=== PATIENT | female | born 1955 | race Caucasian/White ===

== ENCOUNTER → 2017-11-08 | Outpatient (CLI) | payer OTHER ==
[~2017-11-08] MED LIST: AZIT-18 PO; BRIM5DRO8 OP; DIPH-740 PO; PRED-1 PO; VITAMINS
--- NOTE | 2017-11-09 08:56 | RADIOLOGY IMAGING REPORT ---
FACILITY: [facility] - [place] PATIENT NAME: RUBY ULLOA : [id number] MR: [id number] V: [id number] EXAM DATE: ORDERING PHYSICIAN: KATHERINE BENNETT TECHNOLOGIST: Mickie Rae PROCEDURE:BILATERAL DIGITAL SCREENING MAMMOGRAM WITH CAD ASSISTED INTERPRETATION AND 3D BREAST TOMOSYNTHESIS. COMPARISON:Prior mammograms dated 08/04/11. INDICATIONS:SCREENING FINDINGS: A small amount of fibroglandular tissue is seen throughout the breasts. Most of the parenchymal pattern has remained stable when allowing for difference in mammographic technique and patient positioning. There is a focal area of increased density in the medial inferior portion of the left breast for which spot compression view and left breast ultrasound is recommended. DIAGNOSTIC CATEGORY 0--INCOMPLETE: NEED ADDITIONAL IMAGING EVALUATION. RECOMMENDATIONS: ADDITIONAL MAMMOGRAPHIC VIEWS REQUIRED: LEFT BREAST. ULTRASOUND: LEFT BREAST. IMPRESSION: BI-RADS 0: Additional views of the left breast and left breast ultrasound recommended. Images were reviewed with R2CAD and 3D breast tomosynthesis. Dictated by: Cee Toledo M.D. on 11/08/2017 at 16:20 Transcribed by: ELIZABETH on 11/08/2017 at 18:51 Approved by: Cee Toledo M.D. on 11/09/2017 at 8:55 [facility]
== END ==
LOC: MAMO 00:36
PROVIDERS: ATTEND Internal Medicine
DX: Z12.31 Encounter for screening mammogram for malignant neoplasm of breast (principal); R92.8 Other abnormal and inconclusive findings on diagnostic imaging of breast
CPT/HCPCS: 77063; 77067

== ENCOUNTER 2017-11-09 00:23 | Day surgery (SDC) | payer OTHER ==
[~2017-11-09] VITALS: Ht 160 cm; Wt 82.1 kg
[2017-11-09 06:19] VITALS: BP 98/78
[2017-11-09] MEDS ORDERED: NORMOSOL R SOLN(*) 1000 ML BAG 1,000 ML IV PRN (06:45)
[2017-11-09] MEDS ORDERED: MIDAZOLAM 2 MG/2 ML VIAL IVP PRN (06:45)
[2017-11-09] MEDS ORDERED: LIDOCAINE/SOD BICARB 8.4% SYR ID ONE (06:45)
[2017-11-09] MEDS ORDERED: LIDOCAINE MPF 1% 5 ML VIAL ONE (07:04)
[2017-11-09] MEDS ORDERED: PROPOFOL EMUL(*) 10MG/ML 20 ML 60 ML ONE (07:04)
--- NOTE | 2017-11-09 07:17 | Post Operative Progress Note ---
Post Operative Progress Note Date: Nov 09, 2017 Time: 07:54 Surgeon: isaiah Anesthesia: dr escalante Pre-Op Diagnosis: screening colonoscopy Post-Op Diagnosis: 2 mm polyp at 25 cm and 3 mm polyp at 20 cm left colon diverticulosis Procedure(s): colonoscopy and polyp ZEFERINO KOHLI MD Nov 09, 2017 07:17
--- NOTE | 2017-11-09 07:18 | Short(Outpt) Discharge Summary ---
Discharge Summary Reason for Hosp/Final Diag: (1) Encounter for screening colonoscopy Hospital Course & Plan: 2 mm polyp at 205 cm and 3 mm polyp at 20 cm and left colon diverticula Departure Discharge to: Home Discharge Instructions Home Meds Reported Medications Brimonidine Tartrate 0.2% Drops (BRIMONIDINE TARTRATE 0.2% DROPS) 5 Ml Drops, 5 ML OP BID, ML ONE DROP IN EACH EYE 11/02/17 Discontinued Reported Medications Diphenhydramine Hcl (BENADRYL) 25 Mg Capsule, 25 MG PO Q6-8H, CAPSULE 08/15/15 Diet: High Fiber Activity: As Tolerated ZEFERINO KOHLI MD Nov 09, 2017 07:18
[2017-11-09 07:56] VITALS: BP 118/76
[2017-11-09 08:00] VITALS: BP 105/61
[2017-11-09 08:23] VITALS: BP 95/69
--- NOTE | 2017-11-09 11:31 | NACHTIGAL COLONOSCOPY ---
EVENT DATE: November 09, 2017 SURGEON: Evan Malone MD ANESTHESIOLOGIST: Rl Brown MD ANESTHESIA: Sedation PREOPERATIVE DIAGNOSIS Screening colonoscopy. POSTOPERATIVE DIAGNOSIS Left colonic diverticulosis and 2 mm polyp at 25 cm, 3 mm polyp at 20 cm. PROCEDURE PERFORMED Colonoscopy. DESCRIPTION OF PROCEDURE The patient was placed in the left lateral decubitus position and given intravenous sedation. Rectal exam was unremarkable. Flexible colonoscope was inserted and advanced to the cecum. She had an excellent bowel prep. The ileocecal valve, base of the cecum and appendiceal orifice were identified. The scope was slowly withdrawn. Care was taken to look behind the haustral folds. No abnormalities were noted in the cecum, right colon, transverse colon. Starting in the descending and sigmoid colon, she had multiple diverticula, no evidence of diverticulitis. At 25 cm, she had a 2 mm polyp. This was removed with the cold cup. At 20 cm, she had a 3 mm polyp. This was removed with a few bites of the cold cup. The rectum was normal. Scope was retroflexed, that appeared to be normal. MTDJolynn
== END 2017-11-09 08:30 | disposition home or self-care (01) ==
LOC: OR 00:23
PROVIDERS: ATTEND Surgery
DX: Z12.11 Encounter for screening for malignant neoplasm of colon (principal); D12.6 Benign neoplasm of colon, unspecified; K63.5 Polyp of colon
CPT/HCPCS: 00811; 45380; 88305; J2001; J2704

== ENCOUNTER → 2017-12-12 | Outpatient (REF) ==
--- NOTE | 2017-12-13 12:24 | RADIOLOGY IMAGING REPORT ---
FACILITY: [facility] PATIENT NAME: RUBY ULLOA : [id number] MR: [id number] V: [id number] EXAM DATE: ORDERING PHYSICIAN: KATHERINE BENNETT TECHNOLOGIST: Angelina Ellis PROCEDURE:LEFT DIGITAL DIAGNOSTIC MAMMOGRAM WITH CAD AND 3D BREAST TOMOSYNTHESIS. COMPARISON:Prior mammograms dated 11/08/17, 08/04/11. INDICATIONS:FURTHER EVALUATION FINDINGS: The patient returns for spot compression views in the left CC and MLO projection and a lateral medial view of the left breast. Additional images do reconfirm an ovoid nodule in the medial inferior portion of the left breast which was not present on the prior mammograms. Today's left breast ultrasound demonstrated an ovoid slightly irregular hypoechoic nodule in the 7 o'clock position of the left breast for which ultrasound guided core biopsy is recommended. DIAGNOSTIC CATEGORY 4--SUSPICIOUS FOR MALIGNANCY. RECOMMENDATIONS: ULTRASOUND-GUIDED CORE BIOPSY: LEFT BREAST. IMPRESSION: BI-RADS 4: Ultrasound guided core biopsy of the hypoechoic nodule in the 7 o'clock position of the left breast recommended for further evaluation. Findings were discussed with the patient at the time of the examination. Dictated by: Cee Toledo M.D. on 12/12/2017 at 16:00 Transcribed by: ELIZABETH on 12/12/2017 at 20:26 Approved by: Cee Toledo M.D. on 12/13/2017 at 12:22 [facility]
--- NOTE | 2017-12-13 12:24 | RADIOLOGY IMAGING REPORT ---
FACILITY: [facility] - [place] PATIENT NAME: RUBY ULLOA : [id number] MR: [id number] V: [id number] EXAM DATE: ORDERING PHYSICIAN: KATHERINE BENNETT TECHNOLOGIST: Jennifer Pedraza PROCEDURE:LEFT BREAST ULTRASOUND COMPLETE COMPARISON:None. INDICATIONS:FURTHER EVALUATION FINDINGS: In the 7 o'clock position of the left breast there is a slightly irregular ovoid hypoechoic nodule measuring 8.2 x 5.5 x 5.9 mm. This corresponds to the new ovoid nodule seen in the medial inferior portion of the left breast on the recent mammograms. Ultrasound guided core biopsy recommended. Incidentally noted are two small fatty replaced lymph nodes in the left axilla. DIAGNOSTIC CATEGORY 4--SUSPICIOUS FOR MALIGNANCY. RECOMMENDATIONS: ULTRASOUND-GUIDED CORE BIOPSY: LEFT BREAST. IMPRESSION: BI-RADS 4: Ultrasound guided core biopsy of the solid hypoechoic slightly irregular nodule in the 7 o'clock position of the left breast recommended for further evaluation. Dictated by: Cee Toledo M.D. on 12/12/2017 at 16:01 Transcribed by: ELIZABETH on 12/12/2017 at 20:29 Approved by: Cee Toledo M.D. on 12/13/2017 at 12:22 [facility]
== END ==
LOC: MAMO 01:45
PROVIDERS: ATTEND Internal Medicine
DX: R92.8 Other abnormal and inconclusive findings on diagnostic imaging of breast (principal); N63.20 Unspecified lump in the left breast, unspecified quadrant
CPT/HCPCS: 77065

== ENCOUNTER → 2017-12-19 | Outpatient (REF) ==
[2017-12-19 11:32] LABS: INR 0.94
--- NOTE | 2017-12-19 15:43 | RADIOLOGY IMAGING REPORT ---
FACILITY: [facility] - [place] PATIENT NAME: RUBY ULLOA : [id number] MR: [id number] V: [id number] EXAM DATE: ORDERING PHYSICIAN: KAILEY GAONA TECHNOLOGIST: Juanjo Elam PROCEDURE: BIOPSY LEFT BREAST COMPARISON: Breast images are available. HISTORY: 62 yr old female with an 8mm mass Left breast 7 o'clock position who presents for Ultrasound guided core biopsy. INDICATIONS: ABNORMAL MAMMO FINDINGS: Signed, written informed consent was obtained from the patient prior to the procedure. The risks include but are not limited to bleeding, infection & pain. All questions were answered. A final time out was performed prior to the procedure. The patient's left breast was prepped and draped in a sterile fashion. The 8mm nodule in the Left breast 7 o'clock position was localized with Ultrasound. Superficial & deep anesthesia was performed with 6cc Lidocaine. A superficial skin maddi was made with a scalpel. Using Ultrasound guidance, 5 core biopsies were performed with a 14 gauge spring loaded Achieve biopsy gun. A metallic biopsy clip was left at the site. There were no immediate post procedure complications. Post procedure mammogram documents accurate clip location. IMPRESSION: 1. Technically successful ultrasound guided core biopsy of an 8mm nodule in the Left breast 7 o'clock position. 2. Post procedure mammogram as above. Dictated by: Taye Lizama M.D. on 12/19/2017 at 14:37 Transcribed by: AVERY on 12/19/2017 at 15:02 Approved by: Taye Lizama M.D. on 12/19/2017 at 15:42 [facility]
--- NOTE | 2017-12-19 15:43 | RADIOLOGY IMAGING REPORT ---
FACILITY: [facility] - [place] PATIENT NAME: RUBY ULLOA : [id number] MR: [id number] V: [id number] EXAM DATE: ORDERING PHYSICIAN: KAILEY GAONA TECHNOLOGIST: Juanjo Elam PROCEDURE: BIOPSY LEFT BREAST COMPARISON: Breast images are available. HISTORY: 62 yr old female with an 8mm mass Left breast 7 o'clock position who presents for Ultrasound guided core biopsy. INDICATIONS: ABNORMAL MAMMO FINDINGS: Signed, written informed consent was obtained from the patient prior to the procedure. The risks include but are not limited to bleeding, infection & pain. All questions were answered. A final time out was performed prior to the procedure. The patient's left breast was prepped and draped in a sterile fashion. The 8mm nodule in the Left breast 7 o'clock position was localized with Ultrasound. Superficial & deep anesthesia was performed with 6cc Lidocaine. A superficial skin maddi was made with a scalpel. Using Ultrasound guidance, 5 core biopsies were performed with a 14 gauge spring loaded Achieve biopsy gun. A metallic biopsy clip was left at the site. There were no immediate post procedure complications. Post procedure mammogram documents accurate clip location. IMPRESSION: 1. Technically successful ultrasound guided core biopsy of an 8mm nodule in the Left breast 7 o'clock position. 2. Post procedure mammogram as above. Dictated by: Taye Lizama M.D. on 12/19/2017 at 14:37 Transcribed by: AVERY on 12/19/2017 at 15:02 Approved by: Taye Lizama M.D. on 12/19/2017 at 15:42 [facility]
== END ==
LOC: US 10:44
PROVIDERS: ATTEND Nurse Practitioner
DX: Z12.31 Encounter for screening mammogram for malignant neoplasm of breast (principal); Z01.812 Encounter for preprocedural laboratory examination
CPT/HCPCS: 19083; 36415; 77065; 85610; 88305; 88344

== ENCOUNTER → 2019-01-02 | Outpatient (REF) ==
--- NOTE | 2019-01-03 11:11 | RADIOLOGY IMAGING REPORT ---
FACILITY: [facility] PATIENT NAME: RUBY ULLOA : [id number] MR: [id number] V: [id number] EXAM DATE: ORDERING PHYSICIAN: KAILEY GAONA TECHNOLOGIST: Anali Palomo RDMS(ABD,OBGYN,BR),RVT PROCEDURE:US LEFT BREAST COMPARISON:Today's diagnostic mammogram and prior Left breast Ultrasound of 12/12/17. INDICATIONS:Previous Left Breast Biopsy FINDINGS: In the 7 o'clock position of the Left breast 7cm from the nipple there is a relatively well circumscribed ovoid hypoechoic nodule measuring 8 x 6.1 x 5mm. This is relatively unchanged when compared to the prior study. Sense the previous pathology result however was consistent with atypical ductal hyperplasia surgical excision coordinated with mammographic hook wire localization is recommended. DIAGNOSTIC CATEGORY 4--SUSPICIOUS FOR MALIGNANCY. RECOMMENDATIONS: SURGICAL BIOPSY COORDINATED WITH SONOGRAPHIC HOOKWIRE LOCALIZATION: LEFT BREAST. IMPRESSION: BIRADS 4: Suspicious for malignancy. Surgical excision of the hypoechoic nodule 7 o'clock position of the Left breast is recommended coordinated with sonographic hook wire localization is recommended. Dictated by: Cee Toledo M.D. on 01/02/2019 at 17:02 Transcribed by: SILVIO on 01/03/2019 at 9:55 Approved by: Cee Toledo M.D. on 01/03/2019 at 11:09 [facility]
--- NOTE | 2019-01-03 11:11 | RADIOLOGY IMAGING REPORT ---
FACILITY: [facility] PATIENT NAME: RUBY ULLOA : [id number] MR: [id number] V: [id number] EXAM DATE: [id number] ORDERING PHYSICIAN: WILMA TALAVERA TECHNOLOGIST: Angelina Ellis PROCEDURE:BILATERAL DIAGNOSTIC DIGITAL MAMMOGRAM COMPARISON:Prior mammograms 12/12/17, 11/08/17. INDICATIONS:Prior Left Breast Biopsy 12/2017. FINDINGS: There are areas of scattered fibroglandular density throughout the breasts. The parenchymal pattern has remained stable allowing for difference in mammographic technique & patient positioning. The focal area of increased density in the medial inferior portion of the Left breast is again seen with adjacent biopsy. Sense that previous pathology results were consistent with atypical ductal hyperplasia a needle hook wire localization under sonographic guidance with surgical excision is recommended for further evaluation. DIAGNOSTIC CATEGORY 4--SUSPICIOUS FOR MALIGNANCY. RECOMMENDATIONS: SURGICAL BIOPSY COORDINATED WITH ULTRASOUND HOOKWIRE LOCALIZATION: LEFT BREAST. IMPRESSION: BIRADS 4: Suspicious for malignancy. A needle hook wire localization under sonographic guidance with surgical excision of the ovoid nodular density in the medial inferior portion of the Left breast is recommended as described above. Dictated by: Cee Toledo M.D. on 01/02/2019 at 17:01 Transcribed by: SILVIO on 01/03/2019 at 9:49 Approved by: Cee Toledo M.D. on 01/03/2019 at 11:09 [facility]
== END ==
LOC: MAMO 12-27 00:39
PROVIDERS: ATTEND Emergency Medicine
DX: N64.9 Disorder of breast, unspecified (principal)
CPT/HCPCS: 77062; 77066

== ENCOUNTER 2019-04-18 00:21 | Day surgery (SDC) | payer SELFPAY ==
[~2019-04-18] VITALS: Ht 160 cm; Wt 88.9 kg
[~2019-04-18 00:21] MED LIST changes: +ALBU8.5H IH; +MULT-976 TD
[2019-04-18 09:28] VITALS: BP 127/92
[2019-04-18] MEDS ORDERED: fentaNYL CITR 250 MCG/5 ML AMP ONE (09:55)
[2019-04-18] MEDS ORDERED: PROPOFOL EMUL(*) 10MG/ML 20 ML 20 ML ONE (09:56)
[2019-04-18] MEDS ORDERED: LIDOCAINE MPF 1% 5 ML VIAL ONE (09:56)
[2019-04-18] MEDS ORDERED: DEXAMETHASONE SOD PHOS 10MG/ML ONE (09:56)
[2019-04-18] MEDS ORDERED: ONDANSETRON 4 MG/2 ML VIAL ONE (09:56)
[2019-04-18] MEDS ORDERED: KETAMINE HCL 200 MG/20 ML MDV ONE (09:58)
[2019-04-18] MEDS ORDERED: ROPIVACAINE 0.5% 20 ML VIAL ONE (10:34)
[2019-04-18] MEDS ORDERED: NORMOSOL R SOLN(*) 1000 ML BAG 1,000 ML IV PRN (10:35)
[2019-04-18] MEDS ORDERED: ceFAZolin(*) 2GM/D5W 50ML 50 ML IVPB ONE (10:35)
[2019-04-18] MEDS ORDERED: FAMOTIDINE 20 MG TAB PO ONE (10:35)
[2019-04-18] MEDS ORDERED: MIDAZOLAM 2 MG/2 ML VIAL IVP PRN (10:35)
[2019-04-18] MEDS ORDERED: LIDOCAINE/SOD BICARB 8.4% SYR ID ONE (10:35)
[2019-04-18] MEDS ORDERED: ePHEDrine 25 MG/5 ML DISP.SYR IVP ONE (11:59)
[2019-04-18] MEDS ORDERED: TRAM-420 PO (12:53)
[2019-04-18] MEDS ORDERED: DOCU-416 PO (12:53)
--- NOTE | 2019-04-18 12:55 | Short(Outpt) Discharge Summary ---
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 Departure Discharge to: Home, Self Care Discharge Instructions Home Meds Active Scripts Docusate Sodium (COLACE) 100 Mg Capsule, 1 CAP PO BID, #30 CAP 0 Refills TAKE WITH A FULL GLASS OF WATER Prov:TUYET DORMAN MD 04/18/19 Tramadol Hcl (TRAMADOL HCL) 50 Mg Tablet, 1 TAB PO Q6H PRN for PAIN, #10 TAB 0 Refills Prov:TUYET DORMAN MD 04/18/19 Reported Medications Albuterol Sulfate 90 Mcg/Act (PROAIR HFA 90 MCG/ACT) 8.5 Gm Hfa.aer.ad, 1-2 PUFF IH PRN, INHALER 01/25/19 Discontinued Reported Medications Multivitamin (MULTIPLE VITAMINS) 1 Each Tablet, 1 PATCH.24H TD QDAY 01/25/19 Follow up Referrals: General Surgery - 05/01/19 @ Surgery, General with TUYET DORMAN MD You have a follow up appointment scheduled with Dr. Dorman on 05/01/19, at 3:30pm. Diet: Regular Activity: As Tolerated Special Instructions: You may remove the white surgical dressing on 04/20/19, then you can shower. After showering, leave the incision open to air but leave the steristrips in place until they fall off on their own. Do not immerse the incision for 2 weeks. TUYET DORMAN MD Apr 18, 2019 12:55
--- NOTE | 2019-04-18 13:01 | Post Operative Progress Note ---
Post Operative Progress Note Date: Apr 18, 2019 Time: 12:56 Surgeon: Monika Dictation number: [id number] Anesthesia: LMA by Dr. Mayorga Pre-Op Diagnosis: Left breast atypical ductal hyperplasia Post-Op Diagnosis: MARRY Findings: C/W dx Procedure(s): Wire-guided excision of left breast ADH Specimen Removed:(May be N/A): Left breast mass Complications: None Fluids: see anesthesia record Estimated Blood Loss: Minimal Date OP Note Dictated: Apr 18, 2019 Time OP Note Dictated: 12:57 TUYET DORMAN MD Apr 18, 2019 13:00
--- NOTE | 2019-04-18 13:14 | OPERATIVE REPORT 1 ---
EVENT DATE: April 18, 2019 SURGEON: Cristian Frank MD ANESTHESIOLOGIST: Eddie Mayorga MD ANESTHESIA: LMA. PREOPERATIVE DIAGNOSIS Left breast atypical ductal hyperplasia, lower inner quadrant. POSTOPERATIVE DIAGNOSIS Left breast atypical ductal hyperplasia, lower inner quadrant. PROCEDURE PERFORMED Wire-guided excision of left breast atypical ductal hyperplasia. COMPLICATIONS None. CONDITION Stable. ESTIMATED BLOOD LOSS Minimal. FINDINGS The mammogram and specimen revealed the mammographic lesion and biopsy clip to be within the specimen. SPECIMEN Left breast lump. INDICATIONS This is a 63-year old female who presented to my office with a finding a year ago of atypical ductal hyperplasia in her left breast based on biopsy but for some reason it was not excised at that time and a repeat mammogram revealed the same thing and, although it was not changing, she was referred to me for excision of the atypical ductal hyperplasia, which is really the standard to care for this sort of lesion. DESCRIPTION OF PROCEDURE The patient was brought to the operating room and placed supine on the operating room table. LMA anesthesia was administered and the left breast was prepped and draped in sterile fashion. Time-out was completed. I marked the skin overlying the lesion in the lower inner quadrant of her left breast and then made a transverse excision in this area, dissected through the dermis and into the subcutaneous fat, pulled the wire into the wound and dissected around the wire all the way around it and then removed the specimen from the field. I marked it with a short stitch on the superior margin and a long silk stitch on the lateral margin. I put in on a mammogram grid and walked it over to mammogram and took a picture of it and compared the picture to the mammogram image from preop and this revealed the lesion to be within the specimen as well as the biopsy clip. It was then sent to pathology. I then scrubbed back in, irrigated and dried the wound and made sure it was hemostatic and then closed the subcutaneous tissue with interrupted 3-0 Vicryl sutures and closed the skin with interrupted 3-0 Vicryl deep dermal sutures and 4-0 Monocryl running subcuticular sutures. The skin was cleaned, dried and Steri-Strips applied followed by sterile surgical dressing. The patient was awakened and LMA removed in the operating room and she was transferred to recovery room in stable condition, having tolerated the procedure without any apparent problems. DARRYL
[2019-04-18 13:27] VITALS: BP 107/68
[2019-04-18 13:48] VITALS: BP 127/64
[2019-04-18 13:51] VITALS: BP 126/76
--- NOTE | 2019-04-18 14:25 | NUR ---
SPO2 ON ROOM AIR IS 72-77%. SPO2 IMPROVED TO UPPER 80'S WITH DEEP BREATHING. DR CHILDS CONSULTED. DUONEB TREATMENT AND FLUTTER THERAPY ORDERED. WILL REASSESS. MAY NEED HOME O2.
[2019-04-18] MEDS ORDERED: ALBUTEROL/IPRATROPIUM 3 ML NEB ONE (14:34)
--- NOTE | 2019-04-22 16:36 | RADIOLOGY IMAGING REPORT ---
FACILITY: [facility] - [place] PATIENT NAME: RUBY ULLOA : [id number] MR: [id number] V: [id number] EXAM DATE: ORDERING PHYSICIAN: TUYET DORMAN TECHNOLOGIST: Aleah Howard RT(R)(CT) PROCEDURE: ULTRASOUND GUIDED LEFT BREAST LOCALIZATION COMPARISON: None. INDICATIONS: Atypical ductal hyperplasia FINDINGS: Informed consent was obtained. The patient's Left breast was prepped & draped in the usual sterile fashion. Local anesthesia was accomplished with 1% Lidocaine. Under direct & continuous sonographic guidance a needle hookwire combination was advanced percutaneously through the nodule in the 7 o'clock position of the Left breast. The hookwire was deployed & the needle was removed. The patient went to the Operating Room for surgical excision. IMPRESSION: As above. Dictated by: Cee Toledo M.D. on 04/18/2019 at 13:53 Transcribed by: AVERY on 04/19/2019 at 11:28 Approved by: Konrad Garibay on 04/22/2019 at 16:34 [facility]
--- NOTE | 2019-04-22 16:37 | RADIOLOGY IMAGING REPORT ---
FACILITY: [facility] - [place] PATIENT NAME: RUBY ULLOA : [id number] MR: [id number] V: [id number] EXAM DATE: ORDERING PHYSICIAN: TUYET DORMAN TECHNOLOGIST: Angelina Ellis PROCEDURE: BREAST SPECIMEN COMPARISON: None. INDICATIONS: Specimen radiograph from today's Ultrasound guided Left breast needle localization. FINDINGS: Specimen radiograph demonstrates the nodular density, previous Ultrasound guided biopsy clip & the needle hookwire to be located within the surgical specimen. IMPRESSION: As above. Dictated by: Cee Toledo M.D. on 04/18/2019 at 13:52 Transcribed by: AVERY on 04/19/2019 at 11:30 Approved by: Konrad Garibay on 04/22/2019 at 16:35 [facility]
== END 2019-04-18 13:27 | disposition home or self-care (01) ==
LOC: OR 00:21
PROVIDERS: ATTEND Surgery
DX: N60.92 Unspecified benign mammary dysplasia of left breast (principal)
CPT/HCPCS: 19125; 19285; 88305; 88344; 94640; 94667; J1100; J2001; J2250; J2405; J2704; J2795; J3010; J3490; J7620; J0690